=== PATIENT | female | born 1995 | race Caucasian/White ===

== ENCOUNTER 2016-05-21 18:31 | Emergency (ER) | payer OTHER ==
--- NOTE | 2016-05-21 20:58 | ED NURSING NOTES ---
Clinical Report - Nurses [facility] [address] [place] [address] 05/21/2016 18:33 Patient: FERDINAND DESAI TRIAGE Triage time 1640 PM. Acuity: LEVEL 3. Chief Complaint: NAUSEA and VOMITING. Alert. No acute distress. SEPSIS SCREEN: Sepsis Screen. Negative (no infection suspected/documented). AIDA COMA SCORE: Aida Coma Scale: 15- eyes open spontaneously (4); best verbal response- oriented x 4 (5); best motor response- obeys commands (6). --19:00 Kathy Hardin R.N. 18:40 05/21/16. BP: 120/64 (regular adult cuff) taken on the left arm, via an automated monitor, while lying. HR: 69. RR: 16. O2 saturation: 100%. Temp: 98 F (oral). Pain level now: 0/10. --19:00 Kathy Hardin R.N. Weight: 69.3 kg stated. Height/Length: 65 inches Per Patient. BMI: 25.5. --18:42 Kathy Hardin R.N. Medications Lexapro Oral. --18:44 Kathy Hardin R.N. LaMICtal Oral (Tablet 200 mg) 1 tablet. --18:50 Kathy Hardin R.N. [place] Oral 300mg. --18:51 Kathy Hardin R.N. CHOLESTEROL MED. --18:51 Kathy Hardin R.N. Allergies No Known Drug Allergy. --18:43 Kathy Hardin R.N. Medication/allergy information source: the patient. --19:00 Kathy Hardin R.N. History Arrived by private vehicle. Historian: patient. Primary physician (Dr. Farris). ( Pt states that has been feeling nauseas for the past 6 days, went to the doctor to get check out and received a phone call from the doctors office stating that her labs were critical to go to the ED. Pt does admit vomiting approximately 3-5 times a day, last time was last night, green in color. Pt also states being dizzy on and off. Here for further evaluation). Onset. (6 days). No fever, weakness, cough, difficulty breathing or skin rash. Denies muscle aches. 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 PAST MEDICAL HX: Immunizations: up-to-date. Last normal menstrual period- 2 months- on an IUD. 0. Para 0. Abortions 0. Uses an intrauterine device. SOCIAL HX: Never smoker. Occasional alcohol use; consumes wine by the glass. Last drink was 1. (1 months). No drug use. No infectious disease exposure. ABUSE ASSESSMENT: No report of abuse. SELF HARM ASSESSMENT: A self harm assessment was performed. The patient answered "no" to the question "Do you have thoughts of harming or killing yourself?" and "Have you recently had thoughts about harming or killing others?". FALL RISK ASSESSMENT: Fall risk assessment completed. No fall risk identified. NUTRITIONAL RISK ASSESSMENT: The nutritional risk assessment revealed no deficiencies. FUNCTIONAL ASSESSMENT: Functional assessment: no impairments noted. LEARNING NEEDS ASSESSMENT: The learning needs assessment revealed no barriers. SKIN INTEGRITY ASSESSMENT: Skin integrity risk assessment completed. No skin integrity risk identified. --19:00 Kathy Hardin R.N. PROBLEMS: Bipolar Disorder. Depression. Anxiety Reaction. --18:44 Kathy Hardin R.N. ADDITIONAL SURGERIES: [place] teeth removal. --18:44 Kathy Hardin R.N. Interventions ID band on patient. --19:00 Kathy Hardin R.N. PHYSICAL ASSESSMENT Ambulatory to room. GENERAL / NEURO / PSYCH: Alert. Oriented X 4. Appears in no acute distress. HEENT: No facial asymmetry noted. Mucous membranes are pink. RESPIRATORY: Respirations not labored. Breath sounds within normal limits. CVS: Capillary refill less than 2 seconds. Pulses within normal limits. GI / : Abdomen soft and normal bowel sounds. Abdominal tenderness in the right upper quadrant. Guarding and rebound tenderness present. SKIN: Skin intact. Skin is warm and dry. Normal skin turgor. --19:04 Kathy Hardin R.N. NURSING PROGRESS NOTES 18:54 05/21/2016 Site #1 started via IV in the right antecubital space with an 18g angiocath; one attempt. Blood drawn: rainbow set. Labeled in the presence of the patient and sent to the lab. Saline lock flushed. --19:04 Kathy Hardin R.N. The initial plan of care for this patient has been created This plan of care was discussed with the patient. Patient ID band checked for patient name, birthdate and medical record number: patient confirmed. Blood samples drawn from the right antecubital space peripheral IV site by nurse per protocol ; labeled in presence of the patient and sent to lab: rainbow set. Patient gowned. Reassurance given. Two patient identifiers checked. Call light placed in reach. Side rails up x 1. Bed placed in lowest position. Brakes of bed on. --19:04 Kathy Hardin R.N. 19:24 05/21/16. BP: 108/62. HR: 72. RR: 20. O2 saturation: 99% on room air. Pain level now: 4/10. --19:24 Suzan Good 19:24 05/21/2016 Started bag #1 1000 mL IV Fluids IV NS (Saline); at 1000 mL/hr over 2 hour(s) via site #1 via IV pump. Allergies verified and confirmed 5 rights. IV patency established. IV site checked: no pain, redness, or swelling. IV flushed thoroughly pre- and post-medication administration. --19:24 Suzan Good 20:14 05/21/2016 IV Fluids IV NS Discontinued: bag #1 infused. Total amount infused: 1000 mL. IV patency established. IV site checked: no pain, redness, or swelling. IV flushed thoroughly. --20:14 Rustam Kelley RLaverneNLvaerne 20:34 05/21/16. BP: 103/67. HR: 73. O2 saturation: 96% on room air. --20:34 Suzan Good 21:18 05/21/16. BP: 106/58. HR: 71. RR: 18. O2 saturation: 98%. Temp: 98.3 F. Pain level now 0/10. --21:19 Rustam Kelley R.N. DISPOSITION / DISCHARGE Condition at departure: improved. No learning barriers present. Discharge instructions provided and reviewed with the patient. Reviewed warnings. Reviewed medication(s) information. Treatments reviewed. Reviewed referrals. Patient verbalized understanding. Written instructions provided in Sinhala. The patient was discharged by the physician. She was discharged home and accompanied by family. She left the Emergency Department ambulatory and via private vehicle. Family member driving. --21:19 Rustam Kelley R.N. 21:19 05/21/16. BP: 106/58. HR: 71. RR: 18. O2 saturation: 98%. Temp: 98.3 F. Pain level now 0/10. --21:19 Rustam Kelley R.N. Departure time: 2117. --21:20 Rustam Kelley R.N. Locked/Released at 05/21/2016 21:20 by Rustam Kelley R.N.
--- NOTE | 2016-05-21 20:58 | ED ORDER SUMMARY ---
..... Patient: FERDINAND DESAI OrderSheet [facility] VisitID: [id number] [place] [address] 20y, F Registration Date/Time: 05/21/2016 ORDER SHEET Weight: 69.3 kg (stated) Allergies: No Known Drug Allergy GENERAL ORDERS: CBC w Diff Urgent (18:56 05/21/2016 Santiago Yan) (Ack 19:00 LNations ER Tech1) (19:05 EHassan R.N.) CMP Urgent (18:56 05/21/2016 Santiago Yan) (Ack 19:01 LNations ER Tech1) (19:05 EHassan R.N.) Lipase Urgent (18:56 05/21/2016 Santiago Yan) (Ack 19:01 LNations ER Tech1) (19:05 EHassan R.N.) PT with INR Urgent (18:56 05/21/2016 Santiago Yan) (Ack 19:01 LNations ER Tech1) (19:05 EHassan R.N.) PTT Urgent (18:56 05/21/2016 Santiago Yan) (Ack 19:01 LNations ER Tech1) (19:05 EHassan R.N.) UA-Culture if indicated Urgent (18:56 05/21/2016 Santiago Yan) (Ack 19:01 LNations ER Tech1) (19:05 JOHNNIEassan R.N.) Urine Drug Screen Urgent (18:56 05/21/2016 Santiago Yan) (Ack 19:01 LNations ER Tech1) (19:05 EHassan R.N.) Urine Urgent (18:56 05/21/2016 Santiago Yan) (Ack 19:01 LNations ER Tech1) (19:05 EHassan R.N.) Acetaminophen Level Urgent (18:56 05/21/2016 Santiago Yan) (Ack 19:01 LNations ER Tech1) (19:05 EHassan R.N.) Pulse oximeter (18:56 05/21/2016 Santiago Yan) (Ack 19:00 LNations ER Tech1) (19:05 EHassan R.N.) US Abdomen Limited (No) Urgent (18:57 05/21/2016 Santiago Yan) (Ack 19:01 LNations ER Tech1) (19:05 EHassan R.N.) Hepatitis Evaluation VII Urgent (18:57 05/21/2016 Santiago Yan) (Ack 19:01 LNations ER Tech1) (20:03 EHassan R.N.) MEDICATION ORDERS: IV FLUIDS: IV NS : initial bolus 1000 mL (1000 mL/hr), then none - for X1 (NOW) (18:56 05/21/2016 Santiago Yan) (Ack 19:21 HSoule) (19:24 HSoule) ORDER SHEET NOTES: [Electronically signed by Rustam Kelley R.N. (21:20 05/21/2016)] [Electronically signed by Markel Lee Dr. (09:34 05/26/2016)] [Electronically locked/signed by Rustam Kelley R.N. (21:20 05/21/2016)]
--- NOTE | 2016-05-21 20:58 | ED CLINICAL REPORT ---
Clinical Report - Physicians/Mid Levels [facility] [address] [place] [address] 05/21/2016 18:33 Patient: FERDINAND DESAI Time Seen: 1853. Arrived- By private vehicle. Historian- patient and mother. HISTORY OF PRESENT ILLNESS Chief Complaint: elevated liver enzymes. At its maximum, severity described as severe. When seen in the E.D., severity described as severe. Modifying factors- (does not know it makes it better or worse). This started unknown and is still present. It is not gone now. (unsure). No loss of appetite, weight loss, headache, fatigue or weakness. Denies sleep problem. No current or associated symptoms. (did have episode of nausea vomiting and diarrheaabout a week ago which has resolved spontaneously. Patient reports no alcohol consumption recently and also does not report any Tylenol or dcov-irn-zuhleue medications which could potentially contain Tylenol. No family history of autoimmune disease or known history of liver problems. Patient reports no recent seafood exposure or sexual activity. Labs were initially obtained from an outside facility and patient was instructed to go to the emergency department immediately.). Similar symptoms previously: None. Recent medical care: Not recently seen/assessed. REVIEW OF SYSTEMS No fever, difficulty breathing, chest pain, abdominal pain or black stools. No bloody stools, chills, abnormal bleeding, headache or double vision. All systems otherwise negative, except as recorded above. PAST HISTORY See nurses notes. Medications: CHOLESTEROL MED. [place] Oral 300mg. LaMICtal Oral (Tablet 200 mg) 1 tablet. Lexapro Oral. Allergies: No Known Drug Allergy. SOCIAL HISTORY Never smoker. No alcohol use or drug use. No recent travel. Is a local resident. ADDITIONAL NOTES The nursing notes have been reviewed. PHYSICAL EXAM Vital Signs: 05/21/2016 18:40 BP: 120/64. HR: 69. RR: 16. O2 saturation: 100%. Temp: 98 F. Pain level now: 0/10. Blood pressure normal. Oxygen saturation normal. Appearance: Alert. No acute distress. Eyes: Pupils equal, round and reactive to light. Eyes normal inspection. No scleral icterus. ENT: Ears normal. Nose normal. Pharynx normal. Neck: Normal inspection. Neck supple. No JVD. CVS: Normal heart rate and rhythm. Heart sounds normal. Pulses normal. Respiratory: No respiratory distress. Breath sounds normal. Chest nontender. Abdomen: No visible injury. Soft and nontender. Bowel sounds normal. Back: Normal inspection. Skin: Skin warm and dry. Normal skin color. No rash. Normal skin turgor. Extremities: Extremities exhibit normal ROM. No lower extremity edema. Neuro: Oriented X 3. No motor deficit. No sensory deficit. (no asterixis). LABS, X-RAYS, AND EKG Abdominal Sonogram: The gallbladder is normal. Common duct is normal. (possible hepatitis on US. no signs of stones or obstruction.). The study was independently viewed by me and interpreted by the radiologist. The study was discussed with the radiologist (via phone). Laboratory Tests: UA-Culture if indicated: (ROHINI: 05/21/2016 19:05) ( MsgRcvd 05/21/2016 19:32) Final results Test Result Flag Units (Reference) URINE COLOR YELLOW URINE APPEARANCE CLEAR URINE GLUCOSE NEGATIVE (NEGATIVE) URINE BILIRUBIN NEGATIVE (NEGATIVE) URINE KETONE TRACE (NEGATIVE) URINE SPECIFIC GRAVITY 1.020 (1.010-1.030) URINE PH 7.5 (5.0-8.0) URINE PROTEIN 2+ (NEGATIVE) URINE UROBILINOGEN 4.0 EU/dL (0.2-1.0) The urobilinogen reagent area may react with interferingsubstances known to react with Sirisha's reagent such asp-aminosalicylic acid and sulfonamides. Atypical colorreactions may be obtained in the presence of highconcentrations of p-aminobenzoic acid. The absence ofurobilinogen cannot be determined with this test. URINE NITRITE NEGATIVE (NEGATIVE) URINE BLOOD NEGATIVE (NEGATIVE) URINE LEUK ESTERASE NEGATIVE (NEGATIVE) URINE RBC 0-1 rbc/hpf (0-1) URINE WBC 0-1 wbc/hpf (0-1) URINE EPITHELIAL CELLS 1-3 EPI/hpf (0-5) URINE BACTERIA TRACE (<1+) (NONE SEEN) URINE COMMENT CULT NOT INDICATED 2+_ MUCOUSURINE CULTURES ARE SET-UP BASED ON THE FOLLOWING CRITERIA:POSITIVE NITRITEPOSITIVE LEUKOCYTE ESTERASEGREATER THAN 10 WHITE BLOOD CELLSMODERATE (2+) OR GREATER BACTERIA Urine: (ROHINI: 05/21/2016 19:05) ( [facility] 05/21/2016 19:15) Final results Test Result Flag Units (Reference) URINE NEGATIVE [id number]: (ROHINI: 05/21/2016 18:55) ( [facility] 05/23/2016 09:14) Final results Test Result Flag Units (Reference) HEP A AB TOTAL Positive H (Negative) HBSAG SCREEN Negative (Negative) HEP B CORE AB TOT Negative (Negative) HEP B SURFACE AB Non Reactive (.) Non Reactive: Inconsistent with immunity,less than 10 mIU/mLReactive: Consistent with immunity,greater than 9.9 mIU/mL HCV ANTIBODY <0.1 (0.0-0.9) INFCE Result Units: s/co ratioNegative: < 0.8Indeterminate: 0.8 - 0.9Positive: > 0.9The CDC recommends that a positive HCV antibody resultbe followed up with a HCV Nucleic Acid Amplificationtest ([id number]).Performed at: [facility] Lab[address] [id number] Director: Sukh Infante MD, Phone: [phone] CBC w Diff: (ROHINI: 05/21/2016 18:55) ( [facility] 05/21/2016 19:07) Final results Test Result Flag Units (Reference) WHITE BLOOD COUNT 5.9 K/uL (4.5-11.5) RED BLOOD COUNT 4.35 M/uL (4.00-5.20) HEMOGLOBIN 11.0 L gm/dL (12.0-16.0) HEMATOCRIT 34.5 L % (36.0-46.0) MEAN CELL VOLUME 79 L fL (80-100) MEAN CORPUSCULAR HGB 25 L pg (26-34) MEAN CORPUSCULAR HGB CONC 32 g/dL (31-37) RED CELL DISTRIBUTION WIDTH 16.6 H % (11.6-14.8) PLATELET COUNT 231 K/uL (150-400) NEUTROPHIL % 59.5 % (50-75) LYMPH % 26.7 % (25-40) MONO % 7.7 % (3-14) EOSINOPHIL % 5.8 H % (0-4) BASOPHIL % 0.3 % (0-2) PT with INR: (ROHINI: 05/21/2016 18:55) ( [facility] 05/21/2016 19:16) Final results Test Result Flag Units (Reference) INR 1.0 (0.8-1.2) Low Intensity Therapy: INR 1.5-2.0 PT range 18.5-23.1Mod.Intensity Therapy: INR 2.0-3.0 PT range 23.1-31.5High Intensity Therapy: INR 2.5-3.5 PT range 27.4-35.5High Intensity Therapy 2: INR 3.0-4.0 PT range 31.5-39.3 APTT 26 SECONDS (24-34) Urine Drug Screen: (ROHINI: 05/21/2016 18:55) ( [facility] 05/21/2016 19:32) Final results Test Result Flag Units (Reference) AMPHETAMINE/METHAMPHETAMINE NEGATIVE (NEGATIVE) BARBITURATE NEGATIVE (NEGATIVE) BENZODIAZEPINE NEGATIVE (NEGATIVE) CANNABINOID NEGATIVE (NEGATIVE) COCAINE NEGATIVE (NEGATIVE) ECSTASY NEGATIVE (NEGATIVE) METHADONE NEGATIVE (NEGATIVE) OPIATE NEGATIVE (NEGATIVE) The urine drug screen is a qualitative screening test fordrug overdose and abuse. All screen results should beconsidered as presumptive.Drugs screened for are as follows:BenzodiazepinesCocaineAmphetamines/MetamphetaminesTHC (Tetrahydrocannabinol)OpiatesBarbituratesEcstasyMethadonePositive results are unconfirmed. For confirmation, notifythe lab for the specimen to be sent to the reference lab.All confirmations must be performed by a differentmethodology.The ingestion of natural herbal and plant productscontaining Ephedra/Ephedra metabolites can produce in urineone or more substances capable of cross reacting withamphetamine/methamphetamine immunoassays. These testsprovide a preliminary result only. A more specificalternative chemical method must be used to obtain aconfirmed analytical result. CMP: (ROHINI: 05/21/2016 18:55) ( MsgRcvd 05/21/2016 20:39) Final results Test Result Flag Units (Reference) GLUCOSE 90 mg/dL (70-110) BUN 5 L mg/dL (7-18) CREATININE 0.7 mg/dL (0.6-1.3) Estimated GFR >60 mL/min Estimated GFR- >60 mL/min Note: Persistent reduction over 3 months in eGFR<60 mL/min/1.73 m2 defines CKD. Patients with eGFR values>=60 mL/min/1.73 m2 may also have CKD if evidence ofpersistent proteinuria. Additional information may be foundat www.kidney.org. SODIUM 142 mmol/L (136-145) POTASSIUM 3.5 mmol/L (3.5-5.1) CHLORIDE 105 mmol/L (98-107) CARBON DIOXIDE 27 mmol/L (21-32) CALCIUM 8.8 mg/dL (8.5-10.1) TOTAL PROTEIN 7.2 g/dL (6.4-8.2) ALBUMIN 4.0 g/dL (3.3-5.0) BILIRUBIN, TOTAL 0.6 mg/dL (0.0-1.0) ALKALINE PHOSPHATASE 168 H U/L (46-116) AST (SGOT) 314 H U/L (15-37) ALT (SGPT) 2480 H U/L (12-78) DILUTED LIPASE 103 U/L (73-393) ACETAMINOPHEN < 2 L ug/mL (10-30) . PROGRESS AND PROCEDURES Course of Care: he patient is a pleasant 20-year-old female presenting for evaluation of abnormal lab values. Patient has significantly elevated lab values noted froman outside facility recently. Patient's AOT is noted to be greater than 2000. We'll repeat patient's laboratory studies for evaluation of potential lab error. Patient is not reporting any risk factors for hepatitis Patient will be evaluated with laboratory studies as well as a PT. Patient is resting in bed and in no acute distress. No evidence of jaundice. Patient and mother agreeable to the treatment and plan. Patient's workup was remarkable for the findings above. Patient's liver enzymes are significantly elevated however interestingly, only the patient's lfts is significantly elevated. Rest of the patient's lab values are slightly elevated but nowhere near the alt. Ultrasound is currently pending for any signs of obstruction. Patient continues to be nontoxic and in no acute distress. Mother and patient were updated on lab tests. Ultrasound does not show any acute abnormalities. No signs of obstruction noted on ultrasound however there is evidence of potential irritation of the liver. Had discussion with radiology in regards to this. Because the patient's abnormal liver function studies, discussed case with the hospitalist. Because the patient is nontoxic and in no acute distress not having any pain, patient would not have any difficulty with having her workup continued as an outpatient. Recommendations for checking hepatitis viral panel also recommended which has been drawn. Head discussion with patient in regards to workup, diagnosis, home care, follow-up, and return precautions. All questions have been answered. The patient expressed understanding of these instructions and was agreeable to them. Patient encouraged to follow up with gastroenterology and Obtain a referral from her primary care Dr. patient's hepatitis A vaccinations have been given per mother, this note is being completed after the hepatitis panel had returned about after the patient has been dispositioned from the emergency department. Because hepatitis A antibodies are positive, believe the patient to be immunized against hepatitis A. Disposition: Discharged. Condition: good. CLINICAL IMPRESSION 05/21/2016 18:40 BP: 120/64. HR: 69. RR: 16. O2 saturation: 100%. Temp: 98 F. Pain level now: 0/10. Blood pressure normal. Oxygen saturation normal. Acute drug-induced hepatitis (likely from statin and lamictal). INSTRUCTIONS (avoid alcohol and products containing Tylenol). Warnings: GENERAL WARNINGS: Return or contact your physician immediately if your condition worsens or changes unexpectedly, if not improving as expected, or if other problems arise. Specifically return if pain, vomiting, bleeding, breathing difficulty or fever. Your Current Medications: STOP TAKING THE FOLLOWING MEDICATIONS: CHOLESTEROL MED*. LaMICtal Oral : Tablet 200 mg, 1 tablet. CONTINUE TAKING THE FOLLOWING MEDICATIONS: Lexapro Oral. [place] Oral : 300mg. Follow-up: Return to the emergency department as needed. Follow up with your doctor in three days. Reason for referral: recheck today's concerns. Summary of care provided to patient and family via paper. Screening today revealed the patient's blood pressure to be in the normal range. The patient should follow up with a primary care provider for blood pressure management. Understanding of the discharge instructions verbalized by patient. Discharge instructions reviewed (mother). (Electronically signed by Markel Lee Dr. 05/26/2016 9:34)
--- NOTE | 2016-05-21 20:58 | ED ORDER SUMMARY ---
..... Patient: FERDINAND DESAI OrderSheet [facility] VisitID: [id number] [place] [address] 20y, F Registration Date/Time: 05/21/2016 ORDER SHEET Weight: 69.3 kg (stated) Allergies: No Known Drug Allergy GENERAL ORDERS: CBC w Diff Urgent (18:56 05/21/2016 Santiago Yan) (Ack 19:00 LNations ER Tech1) (19:05 EHassan R.N.) CMP Urgent (18:56 05/21/2016 Santiago Yan) (Ack 19:01 LNations ER Tech1) (19:05 EHassan R.N.) Lipase Urgent (18:56 05/21/2016 Santiago Yan) (Ack 19:01 LNations ER Tech1) (19:05 EHassan R.N.) PT with INR Urgent (18:56 05/21/2016 Santiago Yan) (Ack 19:01 LNations ER Tech1) (19:05 EHassan R.N.) PTT Urgent (18:56 05/21/2016 Santiago Yan) (Ack 19:01 LNations ER Tech1) (19:05 EHassan R.N.) UA-Culture if indicated Urgent (18:56 05/21/2016 Santiago Yan) (Ack 19:01 LNations ER Tech1) (19:05 JONHNIEassan R.N.) Urine Drug Screen Urgent (18:56 05/21/2016 Santiago Yan) (Ack 19:01 LNations ER Tech1) (19:05 EHassan R.N.) Urine Urgent (18:56 05/21/2016 Santiago Yan) (Ack 19:01 LNations ER Tech1) (19:05 EHassan R.N.) Acetaminophen Level Urgent (18:56 05/21/2016 Santiago Yan) (Ack 19:01 LNations ER Tech1) (19:05 EHassan R.N.) Pulse oximeter (18:56 05/21/2016 Santiago Yan) (Ack 19:00 LNations ER Tech1) (19:05 EHassan R.N.) US Abdomen Limited (No) Urgent (18:57 05/21/2016 Santiago Yan) (Ack 19:01 LNations ER Tech1) (19:05 EHassan R.N.) Hepatitis Evaluation VII Urgent (18:57 05/21/2016 Santiago Yan) (Ack 19:01 LNations ER Tech1) (20:03 EHassan R.N.) MEDICATION ORDERS: IV FLUIDS: IV NS : initial bolus 1000 mL (1000 mL/hr), then none - for X1 (NOW) (18:56 05/21/2016 Santiago Yan) (Ack 19:21 HSoule) (19:24 HSoule) ORDER SHEET NOTES: [Electronically signed by Rustam Kelley R.N. (21:20 05/21/2016)] [Electronically signed by Markel Lee Dr. (09:34 05/26/2016)] [Electronically locked/signed by Rustam Kelley R.N. (21:20 05/21/2016)]
--- NOTE | 2016-05-21 20:58 | ED NURSING NOTES ---
Clinical Report - Nurses [facility] [address] [place] [address] 05/21/2016 18:33 Patient: FERDINAND DESAI TRIAGE Triage time 1640 PM. Acuity: LEVEL 3. Chief Complaint: NAUSEA and VOMITING. Alert. No acute distress. SEPSIS SCREEN: Sepsis Screen. Negative (no infection suspected/documented). AIDA COMA SCORE: Aida Coma Scale: 15- eyes open spontaneously (4); best verbal response- oriented x 4 (5); best motor response- obeys commands (6). --19:00 Kathy Hardin R.N. 18:40 05/21/16. BP: 120/64 (regular adult cuff) taken on the left arm, via an automated monitor, while lying. HR: 69. RR: 16. O2 saturation: 100%. Temp: 98 F (oral). Pain level now: 0/10. --19:00 Kathy Hardin R.N. Weight: 69.3 kg stated. Height/Length: 65 inches Per Patient. BMI: 25.5. --18:42 Kathy Hardin R.N. Medications Lexapro Oral. --18:44 Kathy Hardin R.N. LaMICtal Oral (Tablet 200 mg) 1 tablet. --18:50 Kathy Hardin R.N. [place] Oral 300mg. --18:51 Kathy Hardin R.N. CHOLESTEROL MED. --18:51 Kathy Hardin R.N. Allergies No Known Drug Allergy. --18:43 Kathy Hardin R.N. Medication/allergy information source: the patient. --19:00 Kathy Hardin R.N. History Arrived by private vehicle. Historian: patient. Primary physician (Dr. Farris). ( Pt states that has been feeling nauseas for the past 6 days, went to the doctor to get check out and received a phone call from the doctors office stating that her labs were critical to go to the ED. Pt does admit vomiting approximately 3-5 times a day, last time was last night, green in color. Pt also states being dizzy on and off. Here for further evaluation). Onset. (6 days). No fever, weakness, cough, difficulty breathing or skin rash. Denies muscle aches. 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 PAST MEDICAL HX: Immunizations: up-to-date. Last normal menstrual period- 2 months- on an IUD. 0. Para 0. Abortions 0. Uses an intrauterine device. SOCIAL HX: Never smoker. Occasional alcohol use; consumes wine by the glass. Last drink was 1. (1 months). No drug use. No infectious disease exposure. ABUSE ASSESSMENT: No report of abuse. SELF HARM ASSESSMENT: A self harm assessment was performed. The patient answered "no" to the question "Do you have thoughts of harming or killing yourself?" and "Have you recently had thoughts about harming or killing others?". FALL RISK ASSESSMENT: Fall risk assessment completed. No fall risk identified. NUTRITIONAL RISK ASSESSMENT: The nutritional risk assessment revealed no deficiencies. FUNCTIONAL ASSESSMENT: Functional assessment: no impairments noted. LEARNING NEEDS ASSESSMENT: The learning needs assessment revealed no barriers. SKIN INTEGRITY ASSESSMENT: Skin integrity risk assessment completed. No skin integrity risk identified. --19:00 Kathy Hardin R.N. PROBLEMS: Bipolar Disorder. Depression. Anxiety Reaction. --18:44 Kathy Hardin R.N. ADDITIONAL SURGERIES: [place] teeth removal. --18:44 Kathy Hardin R.N. Interventions ID band on patient. --19:00 Kathy Hardin R.N. PHYSICAL ASSESSMENT Ambulatory to room. GENERAL / NEURO / PSYCH: Alert. Oriented X 4. Appears in no acute distress. HEENT: No facial asymmetry noted. Mucous membranes are pink. RESPIRATORY: Respirations not labored. Breath sounds within normal limits. CVS: Capillary refill less than 2 seconds. Pulses within normal limits. GI / : Abdomen soft and normal bowel sounds. Abdominal tenderness in the right upper quadrant. Guarding and rebound tenderness present. SKIN: Skin intact. Skin is warm and dry. Normal skin turgor. --19:04 Kathy Hardin R.N. NURSING PROGRESS NOTES 18:54 05/21/2016 Site #1 started via IV in the right antecubital space with an 18g angiocath; one attempt. Blood drawn: rainbow set. Labeled in the presence of the patient and sent to the lab. Saline lock flushed. --19:04 Kathy Hardin R.N. The initial plan of care for this patient has been created This plan of care was discussed with the patient. Patient ID band checked for patient name, birthdate and medical record number: patient confirmed. Blood samples drawn from the right antecubital space peripheral IV site by nurse per protocol ; labeled in presence of the patient and sent to lab: rainbow set. Patient gowned. Reassurance given. Two patient identifiers checked. Call light placed in reach. Side rails up x 1. Bed placed in lowest position. Brakes of bed on. --19:04 Kathy Hardin R.N. 19:24 05/21/16. BP: 108/62. HR: 72. RR: 20. O2 saturation: 99% on room air. Pain level now: 4/10. --19:24 Suzan Good 19:24 05/21/2016 Started bag #1 1000 mL IV Fluids IV NS (Saline); at 1000 mL/hr over 2 hour(s) via site #1 via IV pump. Allergies verified and confirmed 5 rights. IV patency established. IV site checked: no pain, redness, or swelling. IV flushed thoroughly pre- and post-medication administration. --19:24 Suzan Good 20:14 05/21/2016 IV Fluids IV NS Discontinued: bag #1 infused. Total amount infused: 1000 mL. IV patency established. IV site checked: no pain, redness, or swelling. IV flushed thoroughly. --20:14 Rustam Kelley RLaverneNLaverne 20:34 05/21/16. BP: 103/67. HR: 73. O2 saturation: 96% on room air. --20:34 Suzan Good 21:18 05/21/16. BP: 106/58. HR: 71. RR: 18. O2 saturation: 98%. Temp: 98.3 F. Pain level now 0/10. --21:19 Rustam Kelley R.N. DISPOSITION / DISCHARGE Condition at departure: improved. No learning barriers present. Discharge instructions provided and reviewed with the patient. Reviewed warnings. Reviewed medication(s) information. Treatments reviewed. Reviewed referrals. Patient verbalized understanding. Written instructions provided in Nepali. The patient was discharged by the physician. She was discharged home and accompanied by family. She left the Emergency Department ambulatory and via private vehicle. Family member driving. --21:19 Rustam Kelley R.N. 21:19 05/21/16. BP: 106/58. HR: 71. RR: 18. O2 saturation: 98%. Temp: 98.3 F. Pain level now 0/10. --21:19 Rustam Kelley R.N. Departure time: 2117. --21:20 Rustam Kelley R.N. Locked/Released at 05/21/2016 21:20 by Rustam Kelley R.N.
--- NOTE | 2016-05-21 20:58 | ED CLINICAL REPORT ---
Clinical Report - Physicians/Mid Levels [facility] [address] [place] [address] 05/21/2016 18:33 Patient: FERDINAND DESAI Time Seen: 1853. Arrived- By private vehicle. Historian- patient and mother. HISTORY OF PRESENT ILLNESS Chief Complaint: elevated liver enzymes. At its maximum, severity described as severe. When seen in the E.D., severity described as severe. Modifying factors- (does not know it makes it better or worse). This started unknown and is still present. It is not gone now. (unsure). No loss of appetite, weight loss, headache, fatigue or weakness. Denies sleep problem. No current or associated symptoms. (did have episode of nausea vomiting and diarrheaabout a week ago which has resolved spontaneously. Patient reports no alcohol consumption recently and also does not report any Tylenol or [id number] medications which could potentially contain Tylenol. No family history of autoimmune disease or known history of liver problems. Patient reports no recent seafood exposure or sexual activity. Labs were initially obtained from an outside facility and patient was instructed to go to the emergency department immediately.). Similar symptoms previously: None. Recent medical care: Not recently seen/assessed. REVIEW OF SYSTEMS No fever, difficulty breathing, chest pain, abdominal pain or black stools. No bloody stools, chills, abnormal bleeding, headache or double vision. All systems otherwise negative, except as recorded above. PAST HISTORY See nurses notes. Medications: CHOLESTEROL MED. [place]ed Oral 300mg. LaMICtal Oral (Tablet 200 mg) 1 tablet. Lexapro Oral. Allergies: No Known Drug Allergy. SOCIAL HISTORY Never smoker. No alcohol use or drug use. No recent travel. Is a local resident. ADDITIONAL NOTES The nursing notes have been reviewed. PHYSICAL EXAM Vital Signs: 05/21/2016 18:40 BP: 120/64. HR: 69. RR: 16. O2 saturation: 100%. Temp: 98 F. Pain level now: 0/10. Blood pressure normal. Oxygen saturation normal. Appearance: Alert. No acute distress. Eyes: Pupils equal, round and reactive to light. Eyes normal inspection. No scleral icterus. ENT: Ears normal. Nose normal. Pharynx normal. Neck: Normal inspection. Neck supple. No JVD. CVS: Normal heart rate and rhythm. Heart sounds normal. Pulses normal. Respiratory: No respiratory distress. Breath sounds normal. Chest nontender. Abdomen: No visible injury. Soft and nontender. Bowel sounds normal. Back: Normal inspection. Skin: Skin warm and dry. Normal skin color. No rash. Normal skin turgor. Extremities: Extremities exhibit normal ROM. No lower extremity edema. Neuro: Oriented X 3. No motor deficit. No sensory deficit. (no asterixis). LABS, X-RAYS, AND EKG Abdominal Sonogram: The gallbladder is normal. Common duct is normal. (possible hepatitis on US. no signs of stones or obstruction.). The study was independently viewed by me and interpreted by the radiologist. The study was discussed with the radiologist (via phone). Laboratory Tests: UA-Culture if indicated: (ROHINI: 05/21/2016 19:05) ( MsgRcvd 05/21/2016 19:32) Final results Test Result Flag Units (Reference) URINE COLOR YELLOW URINE APPEARANCE CLEAR URINE GLUCOSE NEGATIVE (NEGATIVE) URINE BILIRUBIN NEGATIVE (NEGATIVE) URINE KETONE TRACE (NEGATIVE) URINE SPECIFIC GRAVITY 1.020 (1.010-1.030) URINE PH 7.5 (5.0-8.0) URINE PROTEIN 2+ (NEGATIVE) URINE UROBILINOGEN 4.0 EU/dL (0.2-1.0) The urobilinogen reagent area may react with interferingsubstances known to react with Sirisha's reagent such asp-aminosalicylic acid and sulfonamides. Atypical colorreactions may be obtained in the presence of highconcentrations of p-aminobenzoic acid. The absence ofurobilinogen cannot be determined with this test. URINE NITRITE NEGATIVE (NEGATIVE) URINE BLOOD NEGATIVE (NEGATIVE) URINE LEUK ESTERASE NEGATIVE (NEGATIVE) URINE RBC 0-1 rbc/hpf (0-1) URINE WBC 0-1 wbc/hpf (0-1) URINE EPITHELIAL CELLS 1-3 EPI/hpf (0-5) URINE BACTERIA TRACE (<1+) (NONE SEEN) URINE COMMENT CULT NOT INDICATED 2+_ MUCOUSURINE CULTURES ARE SET-UP BASED ON THE FOLLOWING CRITERIA:POSITIVE NITRITEPOSITIVE LEUKOCYTE ESTERASEGREATER THAN 10 WHITE BLOOD CELLSMODERATE (2+) OR GREATER BACTERIA Urine: (ROHINI: 05/21/2016 19:05) ( [facility] 05/21/2016 19:15) Final results Test Result Flag Units (Reference) URINE NEGATIVE [id number]: (ROHINI: 05/21/2016 18:55) ( [facility] 05/23/2016 09:14) Final results Test Result Flag Units (Reference) HEP A AB TOTAL Positive H (Negative) HBSAG SCREEN Negative (Negative) HEP B CORE AB TOT Negative (Negative) HEP B SURFACE AB Non Reactive (.) Non Reactive: Inconsistent with immunity,less than 10 mIU/mLReactive: Consistent with immunity,greater than 9.9 mIU/mL HCV ANTIBODY <0.1 (0.0-0.9) INFCE Result Units: s/co ratioNegative: < 0.8Indeterminate: 0.8 - 0.9Positive: > 0.9The CDC recommends that a positive HCV antibody resultbe followed up with a HCV Nucleic Acid Amplificationtest ([id number]).Performed at: [facility] [id number] Director: Sukh Infante MD, Phone: [phone] CBC w Diff: (ROHINI: 05/21/2016 18:55) ( [facility] 05/21/2016 19:07) Final results Test Result Flag Units (Reference) WHITE BLOOD COUNT 5.9 K/uL (4.5-11.5) RED BLOOD COUNT 4.35 M/uL (4.00-5.20) HEMOGLOBIN 11.0 L gm/dL (12.0-16.0) HEMATOCRIT 34.5 L % (36.0-46.0) MEAN CELL VOLUME 79 L fL (80-100) MEAN CORPUSCULAR HGB 25 L pg (26-34) MEAN CORPUSCULAR HGB CONC 32 g/dL (31-37) RED CELL DISTRIBUTION WIDTH 16.6 H % (11.6-14.8) PLATELET COUNT 231 K/uL (150-400) NEUTROPHIL % 59.5 % (50-75) LYMPH % 26.7 % (25-40) MONO % 7.7 % (3-14) EOSINOPHIL % 5.8 H % (0-4) BASOPHIL % 0.3 % (0-2) PT with INR: (ROHINI: 05/21/2016 18:55) ( [facility] 05/21/2016 19:16) Final results Test Result Flag Units (Reference) INR 1.0 (0.8-1.2) Low Intensity Therapy: INR 1.5-2.0 PT range 18.5-23.1Mod.Intensity Therapy: INR 2.0-3.0 PT range 23.1-31.5High Intensity Therapy: INR 2.5-3.5 PT range 27.4-35.5High Intensity Therapy 2: INR 3.0-4.0 PT range 31.5-39.3 APTT 26 SECONDS (24-34) Urine Drug Screen: (ROHINI: 05/21/2016 18:55) ( [facility] 05/21/2016 19:32) Final results Test Result Flag Units (Reference) AMPHETAMINE/METHAMPHETAMINE NEGATIVE (NEGATIVE) BARBITURATE NEGATIVE (NEGATIVE) BENZODIAZEPINE NEGATIVE (NEGATIVE) CANNABINOID NEGATIVE (NEGATIVE) COCAINE NEGATIVE (NEGATIVE) ECSTASY NEGATIVE (NEGATIVE) METHADONE NEGATIVE (NEGATIVE) OPIATE NEGATIVE (NEGATIVE) The urine drug screen is a qualitative screening test fordrug overdose and abuse. All screen results should beconsidered as presumptive.Drugs screened for are as follows:BenzodiazepinesCocaineAmphetamines/MetamphetaminesTHC (Tetrahydrocannabinol)OpiatesBarbituratesEcstasyMethadonePositive results are unconfirmed. For confirmation, notifythe lab for the specimen to be sent to the reference lab.All confirmations must be performed by a differentmethodology.The ingestion of natural herbal and plant productscontaining Ephedra/Ephedra metabolites can produce in urineone or more substances capable of cross reacting withamphetamine/methamphetamine immunoassays. These testsprovide a preliminary result only. A more specificalternative chemical method must be used to obtain aconfirmed analytical result. CMP: (ROHINI: 05/21/2016 18:55) ( MsgRcvd 05/21/2016 20:39) Final results Test Result Flag Units (Reference) GLUCOSE 90 mg/dL (70-110) BUN 5 L mg/dL (7-18) CREATININE 0.7 mg/dL (0.6-1.3) Estimated GFR >60 mL/min Estimated GFR- >60 mL/min Note: Persistent reduction over 3 months in eGFR<60 mL/min/1.73 m2 defines CKD. Patients with eGFR values>=60 mL/min/1.73 m2 may also have CKD if evidence ofpersistent proteinuria. Additional information may be foundat [email or web address]. SODIUM 142 mmol/L (136-145) POTASSIUM 3.5 mmol/L (3.5-5.1) CHLORIDE 105 mmol/L (98-107) CARBON DIOXIDE 27 mmol/L (21-32) CALCIUM 8.8 mg/dL (8.5-10.1) TOTAL PROTEIN 7.2 g/dL (6.4-8.2) ALBUMIN 4.0 g/dL (3.3-5.0) BILIRUBIN, TOTAL 0.6 mg/dL (0.0-1.0) ALKALINE PHOSPHATASE 168 H U/L (46-116) AST (SGOT) 314 H U/L (15-37) ALT (SGPT) 2480 H U/L (12-78) DILUTED LIPASE 103 U/L (73-393) ACETAMINOPHEN < 2 L ug/mL (10-30) . PROGRESS AND PROCEDURES Course of Care: he patient is a pleasant 20-year-old female presenting for evaluation of abnormal lab values. Patient has significantly elevated lab values noted froman outside facility recently. Patient's AOT is noted to be greater than 2000. We'll repeat patient's laboratory studies for evaluation of potential lab error. Patient is not reporting any risk factors for hepatitis Patient will be evaluated with laboratory studies as well as a PT. Patient is resting in bed and in no acute distress. No evidence of jaundice. Patient and mother agreeable to the treatment and plan. Patient's workup was remarkable for the findings above. Patient's liver enzymes are significantly elevated however interestingly, only the patient's lfts is significantly elevated. Rest of the patient's lab values are slightly elevated but nowhere near the alt. Ultrasound is currently pending for any signs of obstruction. Patient continues to be nontoxic and in no acute distress. Mother and patient were updated on lab tests. Ultrasound does not show any acute abnormalities. No signs of obstruction noted on ultrasound however there is evidence of potential irritation of the liver. Had discussion with radiology in regards to this. Because the patient's abnormal liver function studies, discussed case with the hospitalist. Because the patient is nontoxic and in no acute distress not having any pain, patient would not have any difficulty with having her workup continued as an outpatient. Recommendations for checking hepatitis viral panel also recommended which has been drawn. Head discussion with patient in regards to workup, diagnosis, home care, follow-up, and return precautions. All questions have been answered. The patient expressed understanding of these instructions and was agreeable to them. Patient encouraged to follow up with gastroenterology and Obtain a referral from her primary care Dr. patient's hepatitis A vaccinations have been given per mother, this note is being completed after the hepatitis panel had returned about after the patient has been dispositioned from the emergency department. Because hepatitis A antibodies are positive, believe the patient to be immunized against hepatitis A. Disposition: Discharged. Condition: good. CLINICAL IMPRESSION 05/21/2016 18:40 BP: 120/64. HR: 69. RR: 16. O2 saturation: 100%. Temp: 98 F. Pain level now: 0/10. Blood pressure normal. Oxygen saturation normal. Acute drug-induced hepatitis (likely from statin and lamictal). INSTRUCTIONS (avoid alcohol and products containing Tylenol). Warnings: GENERAL WARNINGS: Return or contact your physician immediately if your condition worsens or changes unexpectedly, if not improving as expected, or if other problems arise. Specifically return if pain, vomiting, bleeding, breathing difficulty or fever. Your Current Medications: STOP TAKING THE FOLLOWING MEDICATIONS: CHOLESTEROL MED*. LaMICtal Oral : Tablet 200 mg, 1 tablet. CONTINUE TAKING THE FOLLOWING MEDICATIONS: Lexapro Oral. Weed Oral : 300mg. Follow-up: Return to the emergency department as needed. Follow up with your doctor in three days. Reason for referral: recheck today's concerns. Summary of care provided to patient and family via paper. Screening today revealed the patient's blood pressure to be in the normal range. The patient should follow up with a primary care provider for blood pressure management. Understanding of the discharge instructions verbalized by patient. Discharge instructions reviewed (mother). (Electronically signed by Markel Lee Dr. 05/26/2016 9:34)
--- NOTE | 2016-05-21 22:09 | DIAGNOSTIC IMAGING REPORT ---
PROCEDURE: US ABDOMEN ULTRASOUND-LIMITED INDICATION: ABNORMAL LFT TECHNIQUE: Roth scale and color Doppler sonographic images were obtained of the right upper quadrant. COMPARISON: None. FINDINGS: The liver is minimally hypoechoic in echo texture with relative hyper echogenicity of portal triads. No definite intrahepatic biliary dilatation. Extrahepatic common duct is nondilated at 3 mm. No liver mass. The gallbladder is normal without stones or sludge. Normal wall thickness at 1.4 mm. No pericholecystic fluid or Rodgers's sign. The visible portion of the inferior vena cava, abdominal aorta, and portal vein appear normal with appropriate direction of flow in the portal vein. The right kidney is normal measuring 13.4 cm. No free fluid in the right upper quadrant. IMPRESSION: 1. Slight relative hypo echogenicity of hepatic parenchyma diffusely raises the possibility of hepatic edema/hepatitis. Correlate clinically. 2. Otherwise normal right upper quadrant. 3. Discussed with Dr. Lee in the emergency room.
--- NOTE | 2016-05-26 09:35 | ED DISCHARGE INSTRUCTIONS ---
Patient: FERDINAND DESAI General Instructions [facility] VisitID: [id number] [place] [address] 20y, F Registration Date/Time: 05/21/2016 05/21/2016 18:40 BP: 120/64. HR: 69. RR: 16. O2 saturation: 100%. Temp: 98 F. Pain level now: 0/10. Blood pressure normal. Oxygen saturation normal. Acute drug-induced hepatitis (likely from statin and lamictal). INSTRUCTIONS (avoid alcohol and products containing Tylenol). Warnings: GENERAL WARNINGS: Return or contact your physician immediately if your condition worsens or changes unexpectedly, if not improving as expected, or if other problems arise. Specifically return if pain, vomiting, bleeding, breathing difficulty or fever. Your Current Medications: STOP TAKING THE FOLLOWING MEDICATIONS: CHOLESTEROL MED*. LaMICtal Oral : Tablet 200 mg, 1 tablet. CONTINUE TAKING THE FOLLOWING MEDICATIONS: Lexapro Oral. [facility] Oral : 300mg. Follow-up: Return to the emergency department as needed. Follow up with your doctor in three days. Reason for referral: recheck today's concerns. Summary of care provided to patient and family via paper. Screening today revealed the patient's blood pressure to be in the normal range. The patient should follow up with a primary care provider for blood pressure management. Understanding of the discharge instructions verbalized by patient. Discharge instructions reviewed (mother). ADDITIONAL INFORMATION Hepatitis, Viral:Test Result Pending Hepatitis is a contagious viral infection of the liver. There are three common types: A, B and C. You are being tested to determine which type you have. Until you know which type of hepatitis it is, you should practice precautions for all types of hepatitis as described below. Type A Hepatitis: This disease is usually passed by swallowing food or water contaminated with the Hepatitis A virus. It is also passed by close household contact with another person who has this illness. Symptoms begin from 2-6 weeks after exposure. Type B Hepatitis: This disease is passed by contact with the blood (such as sharing needles/syringes or snorting straws) or sexual contact with a person who has the Hepatitis B virus. Symptoms begin 2-6 months after exposure to Hepatitis B. Type C Hepatitis: This disease is usually passed by contact with blood (such as sharing needles/syringes) from a person who has the Hepatitis C virus. Less common causes for Hepatitis C include sexual contact, living in the same house with someone who has the virus, sharing razors or tooth brushes with an infected person, receiving a tattoo with a dirty needle or sharing snorting straws. Symptoms of Hepatitis A and B include fever, nausea, vomiting, loss of appetite, chronic fatigue, weakness, dark urine, light colored stool, aching joints and yellow color of the skin or eyes. Type A Hepatitis is generally a mild illness with symptoms lasting from 2-6 weeks. Type B Hepatitis is a more severe illness and symptoms usually last from 1-3 months. Hepatitis C does not cause any symptoms in 2/3 of the cases. When symptoms do occur they are usually very mild with fatigue, nausea and loss of appetite being a frequent complaint. Home Care: A diet low in saturated fats and high in fruits and vegetables is best for you and your liver. Small, frequent meals are best when nausea is present. If you are having symptoms of hepatitis, you may fatigue easily. Get lots of rest. Don't exert yourself too much. Acetaminophen (Tylenol) and anti-inflammatory drugs such as ibuprofen (Motrin, Advil) and naproxen (Aleve, Naprosyn) can be toxic to the liver in high doses, with prolonged use or in the presence of existing liver damage. Persons with acute (recently diagnosed) hepatitis should not take these medicines unless approved by your doctor. Persons with chronic (long-standing) hepatitis and advanced liver disease should not take these medicines. Persons with only mild or no liver damage from chronic hepatitis may take acetaminophen in low doses (2 grams per 24 hours). Do not take anti-inflammatory medicines. Never take acetaminophen with alcohol since this increases the risk of liver damage. Alcohol stresses the liver and should be avoided for several months until all symptoms have cleared and liver tests are normal. Preventing Spread Of Hepatitis Virus: Wash your hands often after you use the bathroom. Parents caring for a baby with hepatitis should use disposable diapers and wash their hands after changing the baby. pest control service technician workers should not work until cleared by their doctor. Inform your partner of your illness and use a condom when you have sex until the virus has been eliminated from your system. This may reduce the risk of transmission, although it is not a guarantee. Never share needles, syringes or tattoo equipment. Do not attempt to donate blood. Do not share razors or tooth brushes. If you require medical or dental care, inform the staff that you have hepatitis so that extra care may be taken to prevent the spread of infection. If you are or plan to become , notify your physician. Hepatitis can be transmitted to the fetus. Persons living with you or exposed to you in any of the ways described above should contact their physician or the Public Health Dept. as soon as possible for virus testing and protective immunization. An immunization can be given up to two weeks after exposure (Hepatitis A and B only; there is no vaccine for Hepatitis C). Follow Up with your doctor or this facility as directed by our staff in order to get the results of your hepatitis test. Get Prompt Medical Attention if any of the following occur: Frequent vomiting Weight loss from poor appetite Increase in abdominal pain or swelling Increasing drowsiness or confusion Weakness, dizziness or fainting New or increasing yellow color of skin or eyes Hepatitis, Unknown Cause [Viral Or Other, Test Result Pending] Hepatitis is an inflammation of the liver. It can be caused by an infection (most often viral), exposure to toxins (alcohol is a common cause), and autoimmune disease. It can also be a side effect of certain medicines. Symptoms may include fever, nausea, vomiting and loss of appetite. There may also be chronic fatigue, weakness, dark urine, light colored stool, aching joints and yellow skin or eyes. Some types of hepatitis may cause no symptoms early in the disease. Home Care: You may get tired easily. Get lots of rest. Light activity is fine. Dont overexert yourself. A high-protein, high-carbohydrate, low-fat diet is best. Have small, frequent meals if nausea is present. Avoid dehydration. Drink at least 6-8 glasses of fluid per day. Avoid alcohol until further liver testing is done and you have discussed this with your doctor. If you are an alcoholic, hepatitis is a sign that you need to stop drinking for good. Talk to your doctor for help with this. Acetaminophen (Tylenol) and anti-inflammatory drugs such as ibuprofen (Motrin, Advil) and naproxen (Aleve, Naprosyn) can be toxic to the liver in high doses, with prolonged use or in the presence of existing liver damage. Persons with acute (recently diagnosed) hepatitis should not take these medicines unless approved by your doctor. Persons with chronic (long-standing) hepatitis and advanced liver disease should not take these medicines. Persons with only mild or no liver damage from chronic hepatitis may take acetaminophen in low doses (2 grams per 24 hours). Do not take anti-inflammatory medicines. Never take acetaminophen with alcohol since this increases the risk of liver damage. Until your tests are complete, we dont know if your condition is contagious. Until you get your test results, avoid exposing others to your body fluids, as follows: Wash your hands often, and after you use the bathroom. Parents caring for a baby with hepatitis should use disposable diapers. Wash hands after changing the baby. pest control service technician workers should not work until cleared by their doctor. Do not have sex without a condom. Never share needles, syringes or tattoo equipment. Do not attempt to donate blood. Do not share razors or toothbrushes. If you need medical or dental care, inform the staff that you have hepatitis. Follow Up With Your Doctor Or This Facility Or As Directed To Get Your Test Results. If Your Test Shows You Have Infectious Hepatitis, More Information Will Be Given Then. Persons Living With You Or Exposed To You In Any Of The Ways Described Above Should Contact Their Physician Or The Public Health Department As Soon As They Can For Testing And Protective Immunization. An Immunization Can Be Given Up To Two Weeks After A Person Is Exposed (Hepatitis A And B Only; There Is No Vaccine For Hepatitis C). Get Prompt Medical Attention if any of the following occur: Frequent vomiting Weight loss from poor appetite Increase in abdominal pain or swelling Increasing drowsiness or confusion Weakness, dizziness or fainting New or increasing yellow color of skin or eyes Bleeding from the gums or nose, easy bruising You have been given the following additional information: Hepatitis, Viral (Type Pending) Hepatitis, Cause Unknown (Test Pending) (Electronically signed by Markel Lee Dr. 05/26/2016 9:34)
--- NOTE | 2016-05-26 09:35 | ED MED RECONCILIATION SUMMARY ---
Patient: FERDINAND DESAI Medication Reconciliation Report [facility] VisitID: [id number] [address] [place] [address] 20y, F Registration Date/Time: 05/21/2016 Weight: 69.3 kg Height/Length: 65 in. BMI: 25.5 ALLERGIES: No Known Drug Allergy The patient's Home Medications are listed below: STOP TAKING THE FOLLOWING MEDICATIONS: CHOLESTEROL MED LaMICtal Oral (200 mg) 1 tablet CONTINUE TAKING THE FOLLOWING MEDICATIONS: Lexapro Oral [place] Oral 300mg The source(s) of the original Home Medication information: patient The following Medications were given to the patient in the Emergency Department: IV NS IV Fluids bolus 0, then 1000 mL/hr, administered: 05/21/2016 7:24:00 PM The following Medications were prescribed to the patient: None.
--- NOTE | 2016-05-26 09:35 | ED MAR SUMMARY ---
..... Medication Administration Record [facility] [address] [place] [address] Patient: FERDINAND DESAI Visit ID: [id number] 20y, F Weight: 69.3 kg Height/Length: 65 in BMI: 25.5 ALLERGIES: No Known Drug Allergy Start 19:24 05/21/2016 Suzan Good,, Stop 20:14 05/21/2016 Rustam Kelley, RLaverneN. Medication Administered: IV NS (SALINE), Dose: IV Fluids over 2 hour(s), Rate: 1000 mL/hr, Dispensed: 1000 mL bag, Site: #1 right AC. Medication Ordered: IV NS : initial bolus 1000 mL (1000 mL/hr), then none - for X1 (NOW).
--- NOTE | 2016-05-26 09:35 | ED MED RECONCILIATION SUMMARY ---
Patient: FERDINAND DESAI Medication Reconciliation Report [facility] VisitID: [id number] [address] [place] [address] 20y, F Registration Date/Time: 05/21/2016 Weight: 69.3 kg Height/Length: 65 in. BMI: 25.5 ALLERGIES: No Known Drug Allergy The patient's Home Medications are listed below: STOP TAKING THE FOLLOWING MEDICATIONS: CHOLESTEROL MED LaMICtal Oral (200 mg) 1 tablet CONTINUE TAKING THE FOLLOWING MEDICATIONS: Lexapro Oral [place] Oral 300mg The source(s) of the original Home Medication information: patient The following Medications were given to the patient in the Emergency Department: IV NS IV Fluids bolus 0, then 1000 mL/hr, administered: 05/21/2016 7:24:00 PM The following Medications were prescribed to the patient: None.
--- NOTE | 2016-05-26 09:35 | ED MAR SUMMARY ---
..... Medication Administration Record [facility] [address] [place] [address] Patient: FERDINAND DESAI Visit ID: [id number] 20y, F Weight: 69.3 kg Height/Length: 65 in BMI: 25.5 ALLERGIES: No Known Drug Allergy Start 19:24 05/21/2016 Suzan Good,, Stop 20:14 05/21/2016 Rustam Kelley, RLaverneN. Medication Administered: IV NS (SALINE), Dose: IV Fluids over 2 hour(s), Rate: 1000 mL/hr, Dispensed: 1000 mL bag, Site: #1 right AC. Medication Ordered: IV NS : initial bolus 1000 mL (1000 mL/hr), then none - for X1 (NOW).
== END 2016-05-21 21:18 ==
LOC: ED SRH 18:31
DX: K71.2 Toxic liver disease with acute hepatitis (principal); T50.905A Adverse effect of unspecified drugs, medicaments and biological substances, initial encounter; Z79.899 Other long term (current) drug therapy
CPT/HCPCS: 90004; 90073; 90075; 90077; 90078; 90100; 92235; 92760; 92761; 92762; 92763; 92764; 92765; 92766; 92767; 93070; 94001; 94060; 95059; 97000; 99777